=== PATIENT | male | born 1945 | race Caucasian/White ===

== ENCOUNTER 2019-06-05 10:41 | Emergency (ER) | payer MEDICARE, BC ==
--- NOTE | 2019-06-05 11:18 | EDM.PDOC ---
ED HPI GENERAL MEDICAL PROBLEM - General Chief Complaint: Genitourinary Problem Stated Complaint: PEEING BLOOD Time Seen by Provider: 06/05/19 11:05 Source of Information: Reports: Patient History Limitations: Reports: No Limitations - History of Present Illness INITIAL COMMENTS - FREE TEXT/NARRATIVE: This 73 yo male patient reports to the ED due to blood in his urine. The patient reports he noticed blood in his urine last night at about 2300 when he went to work. This morning the patient reports he urinated normally when at home. The patient was on his way to [place] to be seen due to chronic back pain when he stopped at [place] and noticed blood in his urine. The patient reports he was only able to urinate a small amount during the stop in [place]. The patient reports he also had to stop when he got to [place], was only able to void a small amount of very bloody urine. The patient reports he continues to have pressure in his bladder. The patient has voided 2 times since he has been here (mostly blood). The patient reports he has had similar symptoms in the past (2008). The patient has been seen by Dr. Gillis (Urology) in [place]. The patient reports he has had prostate surgery in the past. The patient also reports a right knee replacement. The patient has a history of hypertension and chronic low back pain. Onset Date: 06/04/19 Duration: Getting Worse, Intermittent Quality: Reports: Pressure Severity: Moderate Improves with: Reports: None Worsens with: Reports: None Context: Reports: Other Associated Symptoms: Reports: No Other Symptoms Bladder Pain Score (Numeric/FACES): 4 - Related Data Allergies Allergy/AdvReac Type Severity Reaction Status Date / Time atorvastatin [From Lipitor] Allergy Muscle Verified 06/05/19 10:52 Aches clopidogrel [From Plavix] Allergy Bleeding Verified 06/05/19 11:16 gemfibrozil [From Lopid] Allergy Cannot Verified 06/05/19 10:52 Remember lisinopril Allergy Cough Verified 06/05/19 10:52 Penicillins Allergy Cannot Verified 06/05/19 10:52 Remember Home Meds: Home Meds Aspirin [Ecotrin EC] 81 mg PO DAILY 11/10/16 [History] Metoprolol Succinate [Toprol XL] 50 mg PO DAILY 11/10/16 [History] Nitroglycerin [Nitrostat] 0.4 mg SL ASDIRECTED 11/10/16 [History] Omeprazole 20 mg PO DAILY 11/10/16 [History] Pioglitazone [Actos] 30 mg PO DAILY 11/10/16 [History] hydroCHLOROthiazide [Hydrochlorothiazide] 25 mg PO DAILY 11/10/16 [History] Acetaminophen [Tylenol Arthritis] 1,300 mg PO ASDIRECTED 06/05/19 [History] Multivit-Min/Folic/Vit K/Lycop [One-A-Day Men's Tablet] 1 tab PO DAILY 06/05/19 [History] lisinopriL [Lisinopril] 10 mg PO DAILY 06/05/19 [History] Past Medical History HEENT History: Reports: Impaired Vision Other HEENT History: wears glasses Cardiovascular History: Reports: High Cholesterol, Hypertension Respiratory History: Reports: None Gastrointestinal History: Reports: None Genitourinary History: Reports: Prostate Disorder Musculoskeletal History: Reports: Arthritis, Back Pain, Chronic Neurological History: Reports: None Psychiatric History: Reports: None Endocrine/Metabolic History: Reports: None Hematologic History: Reports: None Immunologic History: Reports: None Oncologic (Cancer) History: Reports: None Dermatologic History: Reports: None - Infectious Disease History Infectious Disease History: Reports: Chicken Pox, Measles, Mumps - Past Surgical History Cardiovascular Surgical History: Reports: Carotid Stents Male Surgical History: Reports: Prostatectomy Other Male Surgeries/Procedures: blood clot in the bladder in 2011 Musculoskeletal Surgical History: Reports: Knee Replacement Social & Family History - Tobacco Use Smoking Status *Q: Never Smoker Second Hand Smoke Exposure: No - Caffeine Use Caffeine Use: Reports: Coffee, Soda - Recreational Drug Use Recreational Drug Use: No ED ROS GENERAL - Review of Systems Review Of Systems: Comprehensive ROS is negative, except as noted in HPI. ED EXAM, RENAL/ - Physical Exam Exam: See Below Exam Limited By: No Limitations General Appearance: Alert, WD/WN, No Apparent Distress Eye Exam: Bilateral Eye: EOMI, Normal Inspection, PERRL Ears: Normal External Exam, Normal Canal, Hearing Grossly Normal, Normal TMs Nose: Normal Inspection, Normal Mucosa, No Blood Throat/Mouth: Normal Inspection, Normal Lips, Normal Teeth, Normal Gums, Normal Oropharynx, Normal Voice, No Airway Compromise Head: Atraumatic, Normocephalic Neck: Normal Inspection, Supple, Non-Tender, Full Range of Motion Respiratory/Chest: No Respiratory Distress, Lungs Clear, Normal Breath Sounds, No Accessory Muscle Use, Chest Non-Tender Cardiovascular: Normal Peripheral Pulses, Regular Rate, Rhythm, No Edema, No Gallop, No JVD, No Murmur, No Rub GI/Abdominal: Normal Bowel Sounds, Soft, Non-Tender, No Organomegaly, No Distention, No Abnormal Bruit, No Mass (Male) Exam: Deferred Rectal (Males) Exam: Deferred Back Exam: Normal Inspection, Full Range of Motion, NT Extremities: Normal Inspection, Normal Range of Motion, Non-Tender, Normal Capillary Refill, No Pedal Edema Neurological: Alert, Oriented, CN II-XII Intact, Normal Cognition, Normal Gait, Normal Reflexes, No Motor/Sensory Deficits Psychiatric: Normal Affect, Normal Mood Skin Exam: Warm, Dry, Intact, Normal Color, No Rash Lymphatic: No Adenopathy Course - Vital Signs Last Recorded V/S: Last Vital Signs Temp 35.7 C L 06/05/19 10:47 Pulse 89 06/05/19 10:47 Resp 16 06/05/19 10:47 BP 142/96 H 06/05/19 10:47 Pulse Ox 97 06/05/19 10:47 - Orders/Labs/Meds Orders: Active Orders 24 hr Category Date Time Status Bladder Scan [RC] ASDIRECTED Care 06/05/19 10:54 Ordered Urinary Catheter Assessment [RC] ASDIRECTED Care 06/05/19 11:22 Ordered Urinary Catheter Insertion [Insert Urinary Catheter] [ Care 06/05/19 11:30 Ordered OM.PC] Q24H CULTURE URINE [RM] Urgent Lab 06/05/19 11:00 Received Labs: Laboratory Tests 06/05/19 06/05/19 06/05/19 Range/Units 11:00 11:04 11:04 WBC 9.9 (5.0-10.0) 10^3/uL RBC 4.88 (4.6-6.2) 10^6/uL Hgb 15.7 (14.0-18.0) g/dL Hct 42.7 (40.0-54.0) % MCV 87.5 (80-100) fL MCH 32.2 (27.0-34.0) pg MCHC 36.8 H (33.0-35.0) g/dL Plt Count 432 (150-450) 10^3/uL Neut % (Auto) 62.5 (42.2-75.2) % Lymph % (Auto) 25.1 (20.5-50.1) % [place] % (Auto) 9.3 H (2-8) % Eos % (Auto) 2.3 (1.0-3.0) % Baso % (Auto) 0.8 (0.0-1.0) % Sodium 136 (136-145) mmol/L Potassium 4.2 (3.5-5.1) mmol/L Chloride 98 (98-107) mmol/L Carbon Dioxide 29 (21-32) mmol/L Anion Gap 13.2 H (7-13) mEq/L BUN 23 H (7-18) mg/dL Creatinine 1.01 (0.70-1.30) mg/dL Est Cr Clr Drug Dosing 63.96 mL/min Estimated GFR (MDRD) > 60 BUN/Creatinine Ratio 22.8 (No establ ref range) Glucose 198 H (74-99) mg/dL Calcium 9.1 (8.5-10.1) mg/dL Total Bilirubin 0.8 (0.2-1.0) mg/dL AST 17 (15-37) U/L ALT 28 (16-63) U/L Alkaline Phosphatase 98 (46-116) U/L Total Protein 7.6 (6.4-8.2) g/dL Albumin 4.4 (3.4-5.0) g/dL Globulin 3.2 Albumin/Globulin Ratio 1.4 Urine Color Red (YELLOW) Urine Appearance Turbid (CLEAR) Urine pH 8.5 (5.0-9.0) Ur Specific [place] 1.020 (1.005-1.030) Urine Protein >=300 H (NEGATIVE) Urine Glucose (UA) 100 H (NEGATIVE) Urine Ketones Trace H (NEGATIVE) Urine Occult Blood Large H (NEGATIVE) Urine Nitrite Positive H (NEGATIVE) Urine Bilirubin Moderate H (NEGATIVE) Urine Urobilinogen 0.2 (0.2-1.0) mg/dL Ur Leukocyte Esterase Negative (NEGATIVE) Urine RBC Packed H /HPF Urine WBC 0-5 (0-5/HPF) /HPF Ur Epithelial Cells Rare (NOT SEEN) /HPF Amorphous Sediment Not seen (NOT SEEN) /HPF Urine Bacteria Rare (0-FEW/HPF) /HPF Urine Mucus Not seen (NOT SEEN) /LPF Meds: Medications Discontinued Medications Generic Name Dose Route Start Last Admin Trade Name Arlene PRN Reason Stop Dose Admin Iopamidol 100 ml 06/05/19 12:25 06/05/19 13:23 Isovue-300 (61%) IVPUSH 06/05/19 12:26 100 ml ONETIME ONE Administration - Re-Assessments/Exams Free Text/Narrative Re-Assessment/Exam: 06/05/19 12:[address] Ly (Urology with [facility] in [place]). Dr. Ly requested that the patient has a CT of the abdomen/pelvis with and without contrast. Dr. Ly also suggested the patient increase his oral fluid intake and stop Aspirin. The CT was ordered and the plan was conveyed to the patient. The patient reported increased pressure in his bladder. The patient reports the feeling was similar the last time that his catheter got plugged. Departure - Departure Time of Disposition: 14:19 Disposition: DC/Tfer to [facility] Condition: Fair Clinical Impression: Gross hematuria - Discharge Information *PRESCRIPTION DRUG MONITORING PROGRAM REVIEWED*: Not Applicable *COPY OF PRESCRIPTION DRUG MONITORING REPORT IN PATIENT RUFUS: Not Applicable Forms: Interfacility Transfer EMTALA Care Plan Goals: Discussed the patient's history, examination, treatments and CT results with Dr. Goncalves. Dr. Goncalves accepted the patient for continued evaluation and further management in conjunction with Dr. Ly. The patient will be transported by [facility]. Sepsis Event Note - Evaluation Sepsis Screening Result: No Definite Risk - Focused Exam Vital Signs: Vital Signs Temp Pulse Resp BP Pulse Ox 06/05/19 10:47 35.7 C L 89 16 142/96 H 97 Date Exam was Performed: 06/05/19 Time Exam was Performed: 14:19 - My Orders Last 24 Hours: My Active Orders 06/05/19 10:54 Bladder Scan [RC] ASDIRECTED 06/05/19 11:00 CULTURE URINE [RM] Urgent 06/05/19 11:22 Urinary Catheter Assessment [RC] ASDIRECTED 06/05/19 11:30 Urinary Catheter Insertion [Insert Urinary Catheter] [OM.PC] Q24H - Assessment/Plan Last 24 Hours: My Active Orders 06/05/19 10:54 Bladder Scan [RC] ASDIRECTED 06/05/19 11:00 CULTURE URINE [RM] Urgent 06/05/19 11:22 Urinary Catheter Assessment [RC] ASDIRECTED 06/05/19 11:30 Urinary Catheter Insertion [Insert Urinary Catheter] [OM.PC] Q24H
[2019-06-05 11:37] LABS: ANION GAP 13.2 mEq/L (7-13); CHLORIDE,CL 98 mmol/L (98-107); SODIUM,NA 136 mmol/L (136-145)
[2019-06-05] MEDS ORDERED: Iopamidol 612 MG/ML 100 ML Bottle IVPUSH ONE (12:25)
--- NOTE | 2019-06-05 14:04 | CT ---
EXAMINATION: Abdomen Pelvis w wo Cont SEX: Male AGE: 73 years CLINICAL HISTORY: 73-year-old hypertensive male with GROSS HEMATURIA, "prostate surgery before 2008", and indwelling catheter placed by ER. No previous exams immediately available at this institution. Scan technique: Volume acquisition of data from the abdomen and pelvis (kidneys/ureters/bladder) obtained without oral contrast and before/during/after intravenous infusion 100 cc nonionic Isovue contrast at 3 cc/s via injector with patient lying supine on the Siemens multislice scanner [place], [place]. All data archived in the PACS system for storage, reformatting axial/sagittal/coronal planes and study. Interpretation: Markedly abnormal. 1. Distended midline urinary bladder filled with blood clot and/or tumor. (Reaves balloon associated with Indwelling catheter)" 2. Note: Catheter passes through heterogenous dense enlarged prostate demonstrated at the base of the urinary bladder. 3. Symmetric normal reniform size, axis and configuration. No sign of renal cortical mass lesion, nephrolithiasis or obstructive uropathy i.e. no pyelocaliectasis or ureterectasis. 4. Gallbladder, liver, stomach (small hiatus hernia), spleen, pancreas and adrenal glands unremarkable. 5. No pelvic or abdominal mass lesion, mesenteric or retroperitoneal lymphadenopathy, inflammatory "dirty" peritoneal fat, signs of mechanical bowel obstruction, ascites or free intraperitoneal air. Normal appendix RLQ. 6. Bulbous (aneurysmal) dilatation calcified, ectatic distal abdominal aorta measures 2.8 x 3.2 cm. Normal iliac arteries. 7. Lung bases are clear. 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 Mild insufficiency fracture (collapse) T12 vertebral body. CONCLUSION: Abnormal prostate gland and urinary bladder. (See above) No other evidence of primary or metastatic intraperitoneal malignancy.
== END 2019-06-05 14:41 ==
LOC: DL.ED 10:41
DX: R31.0 Gross hematuria (principal); E78.00 Pure hypercholesterolemia, unspecified; I10 Essential (primary) hypertension; M19.90 Unspecified osteoarthritis, unspecified site; Z79.82 Long term (current) use of aspirin; Z79.899 Other long term (current) drug therapy; Z88.8 Allergy status to other drugs, medicaments and biological substances; Z88.0 Allergy status to penicillin
CPT/HCPCS: 36415; 51702; 74178; 80053; 81001; 85025; 87086; 99285; Q9967

== ENCOUNTER 2024-11-29 09:33 | Day surgery (SDC) | payer MEDICARE, BC ==
[2024-11-29] MEDS ORDERED: Ondansetron 4 MG/2 ML SDV IVPUSH PRN (09:45)
[2024-11-29] MEDS: Povidone-Iodine 5% Sterile Ophth Soln 30 ML Bottle EYELF ONE ×2 (10:00→10:34)
[2024-11-29] MEDS: Moxifloxacin 0.5% Ophth Soln 3 ML Bottle EYELF ONE (10:02)
[2024-11-29] MEDS: Phenylephrine 10% Ophth Soln 5 ML Bot EYELF ONE (10:03)
[2024-11-29] MEDS: Timolol Maleate 0.5% Ophth Soln 5 ML Bottle EYELF ONE (10:03)
[2024-11-29] MEDS: Cataract Ophth Solution EYELF ONE (10:04)
[2024-11-29] MEDS: Diclofenac Sodium 0.1% Ophth Soln 5 ML Bottle EYELF ONE (10:42)
[2024-11-29] MEDS: Apraclonidine 0.5% Ophth Soln 5 ML Bot EYELF ONE (10:42)
[2024-11-29] MEDS: Dexamethasone/Neomycin/Polymyxin B Ophth Oint 3.5 GM Tube EYELF ONE (10:43)
== END 2024-11-29 11:34 | disposition home or self-care (01) ==
LOC: DL.SDS 09:33
PROVIDERS: ATTEND Ophthalmology
DX: E11.36 Type 2 diabetes mellitus with diabetic cataract (principal); H25.813 Combined forms of age-related cataract, bilateral; I10 Essential (primary) hypertension; Z88.0 Allergy status to penicillin; Z88.8 Allergy status to other drugs, medicaments and biological substances; Z79.82 Long term (current) use of aspirin; Z79.899 Other long term (current) drug therapy
CPT/HCPCS: 66984; A9270; J2003; J3373; J3490

== ENCOUNTER 2024-12-20 09:32 | Day surgery (SDC) | payer MEDICARE, BC ==
[2024-12-20] MEDS ORDERED: Dexamethasone 4 MG/ML SDV IV ONE (09:33)
[2024-12-20] MEDS ORDERED: Midazolam 1 MG/ML 2 ML SDV IV ONE (09:33)
[2024-12-20] MEDS ORDERED: Sodium Chloride 0.9% 10 ML Syringe IV ONE (09:33)
[2024-12-20] MEDS ORDERED: Ondansetron 4 MG/2 ML SDV IVPUSH PRN (10:00)
[2024-12-20] MEDS: Moxifloxacin 0.5% Ophth Soln 3 ML Bottle EYERT ONE (10:15)
[2024-12-20] MEDS: Povidone-Iodine 5% Sterile Ophth Soln 30 ML Bottle EYERT ONE ×2 (10:16→11:18)
[2024-12-20] MEDS: Phenylephrine 10% Ophth Soln 5 ML Bot EYERT ONE (10:17)
[2024-12-20] MEDS: Timolol Maleate 0.5% Ophth Soln 5 ML Bottle EYERT ONE (10:18)
[2024-12-20] MEDS: Cataract Ophth Solution EYERT ONE (10:18)
[2024-12-20] MEDS ORDERED: Dexamethasone 4 MG/ML SDV ONE (11:01)
[2024-12-20] MEDS: Apraclonidine 0.5% Ophth Soln 5 ML Bot EYERT ONE (11:19)
[2024-12-20] MEDS: Dexamethasone/Neomycin/Polymyxin B Ophth Oint 3.5 GM Tube EYERT ONE (11:20)
[2024-12-20] MEDS: Diclofenac Sodium 0.1% Ophth Soln 5 ML Bottle EYERT ONE (11:20)
== END 2024-12-20 12:02 | disposition home or self-care (01) ==
LOC: DL.SDS 09:32
PROVIDERS: ATTEND Ophthalmology
DX: E11.36 Type 2 diabetes mellitus with diabetic cataract (principal); H25.813 Combined forms of age-related cataract, bilateral; I10 Essential (primary) hypertension; E11.21 Type 2 diabetes mellitus with diabetic nephropathy; I25.10 Atherosclerotic heart disease of native coronary artery without angina pectoris; Z79.82 Long term (current) use of aspirin; Z79.899 Other long term (current) drug therapy; Z87.891 Personal history of nicotine dependence
CPT/HCPCS: A9270-GY; J1100; J2003; J2250; J3373; J3490